=== PATIENT | female | born 1945 | race American Indian/Alaskan Native ===

== ENCOUNTER 2017-01-29 05:54 | Day surgery (SDC) | payer MEDICARE ==
[2017-01-29] MEDS ORDERED: NACL 0.9% 1000 ML 1,000 ML IV SCH (06:00)
[2017-01-29] MEDS ORDERED: ANCEF/STERILE WATER 2 GM/20 ML 2 GM/20 ML SYRINGE IV NR (06:00)
[2017-01-29 07:17] LABS: Basophils % (Auto) 1.2 % (0.0-1.8); Hematocrit 32.1 % (30.3-42.9); Hemoglobin 10.4 gm/dl (10.1-14.3); Mean Corpuscular HGB Conc 32 % (30-34); Mean Corpuscular Volume 80 fl (79-97); Platelet Count 235 K/mm3 (140-440); Red Blood Count 4.04 M/mm3 (3.65-5.03); Red Cell Distribution Width 15.2 % (13.2-15.2); White Blood Count 7.8 K/mm3 (4.5-11.0)
[2017-01-29 07:18] LABS: Mean Corpuscular Hemoglobin 26 pg (28-32)
--- NOTE | 2017-01-29 07:25 | Anesthesia Day of Surgery ---
Anesthesia Day of Surgery - Day of Surgery Patient Examined: Yes Patient H&P Reviewed: Yes Patient is NPO: Yes
--- NOTE | 2017-01-29 07:25 | Anesthesia Consultation ---
Anesthesia Consult and Med Hx Date of service: 01/29/17 - Airway Anesthetic Teeth Evaluation: Good ROM Head & Neck: Adequate Mental/Hyoid Distance: Adequate Mallampati Class: Class II Intubation Access Assessment: Probably Good - Pulmonary Exam CTA: Yes - Cardiac Exam Cardiac Exam: RRR - Pre-Operative Health Status ASA Pre-Surgery Classification: ASA4 Proposed Anesthetic Plan: General - Pulmonary Hx Smoking: No Hx Sleep Apnea: No - Cardiovascular System Hx Hypertension: Yes Hx Heart Attack/AMI: Yes (? 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
[2017-01-29] MEDS ORDERED: DIPRIVAN 10 MG/ML IV ONE (07:26)
[2017-01-29] MEDS ORDERED: XYLOCAINE MPF 2% ONE (07:27)
[2017-01-29] MEDS ORDERED: DILAUDID ONE ×2 (07:27→10:16)
[2017-01-29] MEDS ORDERED: NACL ONE (07:28)
[2017-01-29] MEDS ORDERED: MARCAINE 0.5% 30 ML INFILTRATI ONE (07:28)
[2017-01-29] MEDS ORDERED: HEPARIN 10,000 UNITS/10 ML ONE (07:29)
[2017-01-29] MEDS ORDERED: RIFADIN ONE (07:29)
[2017-01-29] MEDS ORDERED: NACL 0.9% 500 ML 500 ML ONE (07:29)
[2017-01-29 07:31] LABS: BUN/Creatinine Ratio 19.41; Calcium 8.9 mg/dL (8.4-10.2); Chloride 104.6 mmol/L (98-107); Potassium 4.7 mmol/L (3.6-5.0)
--- NOTE | 2017-01-29 08:22 | History and Physical Report ---
History of Present Illness Date of examination: 01/29/17 Date of admission: 01/29/2017 Chief complaint: Chronic Renal Insufficiency History of present illness: The patient is a 71-year-old female with history of stage V chronic renal insufficiency that is not yet progressed to hemodialysis however needs it in the very near future. She is in need of long-term access and requires placement of this prior to the initiation of hemodialysis. She had a vein size and in the past that demonstrated she does not have adequate veins for creation of a fistula so she is in need of an AV graft. She presents for graft placement. Past History Past Medical History: CAD, diabetes, hypertension, hyperlipidemia, renal failure , stroke Past Surgical History: hysterectomy, Other (Rotator cuff repair, hand surgery) Social history: no significant social history Family history: no significant family history Medications and Allergies Allergies Allergy/AdvReac Type Severity Reaction Status Date / Time No Known Allergies Allergy Unverified 01/26/17 10:33 Home Medications Medication Instructions Recorded Confirmed Last Taken Type Acetaminophen [Tylenol] 325 mg PO Q6HR PRN 01/26/17 01/26/17 Unknown History Aspirin [Adult Low Dose Aspirin EC] 81 mg PO DAILY 01/26/17 01/26/17 Unknown History Clopidogrel [Plavix] 75 mg PO QDAY 01/26/17 01/26/17 Unknown History Furosemide [Lasix] 20 mg PO QDAY 01/26/17 01/26/17 Unknown History Insulin Aspart [NovoLOG Flexpen] 0 units SQ AC 01/26/17 01/26/17 Unknown History Insulin Detemir [Levemir] 14 units SQ BID 01/26/17 01/26/17 Unknown History Lisinopril [Zestril] 20 mg PO QDAY 01/26/17 01/26/17 Unknown History Meclizine [Antivert] 25 mg PO PRN PRN 01/26/17 01/26/17 Unknown History Metoprolol [Lopressor TAB] 50 mg PO DAILY 01/26/17 01/26/17 Unknown History Niacin 500 mg PO QHS 01/26/17 01/26/17 Unknown History amLODIPine [Norvasc] 10 mg PO DAILY 01/26/17 01/26/17 Unknown History traMADol [Ultram] 50 mg PO Q4HR PRN 01/26/17 01/26/17 Unknown History Active Meds: Active Medications Cefazolin Sodium (Ancef/Sterile Water 2 Gm/20 Ml) 2 gm in 20 mls @ 80 mls/hr IV PREOP NR PRN Reason: Protocol Stop: 01/29/17 23:59 Sodium Chloride (Nacl 0.9% 1000 Ml) 1,000 mls @ 42 mls/hr IV DIRECT LARISA Last Admin: 01/29/17 07:40 Dose: 42 mls/hr Review of Systems Constitutional: fatigue, no weight loss, no anorexia Ears, nose, mouth and throat: deferred Breasts: deferred Cardiovascular: no chest pain, no orthopnea, no palpitations Respiratory: no cough, no cough with sputum, no shortness of breath Gastrointestinal: no abdominal pain, no nausea, no vomiting, no diarrhea, no change in bowel habits Genitourinary Female: no dysuria, no urinary frequency Menstruation: postmenopausal Rectal: no pain, no incontinence, no bleeding Musculoskeletal: no neck stiffness, no neck pain Integumentary: no rash Neurological: no head injury, no weakness Psychiatric: no anxiety, no depression Endocrine: no cold intolerance, no heat intolerance Hematologic/Lymphatic: no easy bruising, no easy bleeding Exam - Constitutional General appearance: Present: no acute distress - Neck Neck: Present: supple - Respiratory Respiratory effort: normal - Cardiovascular Rhythm: regular - Extremities Extremities: no ischemia, No edema, normal temperature - Abdominal General gastrointestinal: Present: soft, non-tender, non-distended Female genitourinary: Present: deferred - Rectal Rectal Exam: deferred - Integumentary Integumentary: Present: clear Results - Labs CBC & Chem 7: 01/29/17 06:55 01/29/17 06:55 Labs: Abnormal lab results 01/29/17 01/29/17 Range/Units 06:55 06:55 MCH 26 L (28-32) pg Lymph % (Auto) 35.4 H (13.4-35.0) % [place] % (Auto) 9.0 H (0.0-7.3) % Carbon Dioxide 21 L (22-30) mmol/L BUN 33 H (7-17) mg/dL Creatinine 1.7 H (0.7-1.2) mg/dL Glucose 180 H (65-100) mg/dL - Imaging and Cardiology Venous US: other (vein Mapping reviewed) Assessment and Plan The patient is 71-year-old female in need of long-term hemodialysis access. She does not have adequate vein for creation of a fistula. She will have creation of a left arm AV graft. She was given the risks, benefits, and alternative procedures and consented to the procedure.
[2017-01-29] MEDS ORDERED: ZOFRAN ONE ×2 (08:40→13:04)
[2017-01-29] MEDS ORDERED: HEPARIN 10,000 UNITS/10 ML IV ONE (09:05)
[2017-01-29] MEDS ORDERED: ePHEDrine SULFATE ONE (09:06)
[2017-01-29] MEDS ORDERED: NACL 0.9% IR ONE (09:06)
[2017-01-29] MEDS ORDERED: MARCAINE 0.5% IJ ONE (09:06)
[2017-01-29] MEDS ORDERED: RIFADIN IV ONE (09:06)
[2017-01-29] MEDS ORDERED: NACL IRRIGATION ONE (09:07)
[2017-01-29] MEDS ORDERED: NACL 0.9% 500 ML IRRIGATION ONE (09:08)
--- NOTE | 2017-01-29 09:41 | Short Stay Summary ---
Short Stay Documentation Date of service: 01/29/17 - History Past Medical History: CAD, diabetes, hypertension, hyperlipidemia, renal failure , stroke Past Surgical History: hysterectomy, Other (Rotator cuff repair, hand surgery) Social history: no significant social history - Allergies and Medications Current Medications: Allergies No Known Allergies Allergy (Unverified 01/26/17 10:33) Home Medications Medication Instructions Recorded Confirmed Last Taken Type Acetaminophen [Tylenol] 325 mg PO Q6HR PRN 01/26/17 01/26/17 Unknown History Aspirin [Adult Low Dose Aspirin EC] 81 mg PO DAILY 01/26/17 01/26/17 Unknown History Clopidogrel [Plavix] 75 mg PO QDAY 01/26/17 01/26/17 Unknown History Furosemide [Lasix] 20 mg PO QDAY 01/26/17 01/26/17 Unknown History Insulin Aspart [NovoLOG Flexpen] 0 units SQ AC 01/26/17 01/26/17 Unknown History Insulin Detemir [Levemir] 14 units SQ BID 01/26/17 01/26/17 Unknown History Lisinopril [Zestril] 20 mg PO QDAY 01/26/17 01/26/17 Unknown History Meclizine [Antivert] 25 mg PO PRN PRN 01/26/17 01/26/17 Unknown History Metoprolol [Lopressor TAB] 50 mg PO DAILY 01/26/17 01/26/17 Unknown History Niacin 500 mg PO QHS 01/26/17 01/26/17 Unknown History amLODIPine [Norvasc] 10 mg PO DAILY 01/26/17 01/26/17 Unknown History traMADol [Ultram] 50 mg PO Q4HR PRN 01/26/17 01/26/17 Unknown History Active Medications Cefazolin Sodium (Ancef/Sterile Water 2 Gm/20 Ml) 2 gm in 20 mls @ 80 mls/hr IV PREOP NR PRN Reason: Protocol Stop: 01/29/17 23:59 Sodium Chloride (Nacl 0.9% 1000 Ml) 1,000 mls @ 42 mls/hr IV DIRECT LARISA Last Admin: 01/29/17 07:40 Dose: 42 mls/hr - Physical exam Breasts: deferred Extremities: no ischemia, No edema, normal temperature - Brief post op/procedure progress note Date of procedure: 01/29/17 Pre-op diagnosis: Chronic Renal Insufficiency Post-op diagnosis: same Procedure: Creation of Left Part Artery to Left Axillary Vein AV Graft with 5 Mm Bovine Graft Anesthesia: TRUNG Surgeon: RYLAND PIPER Estimated blood loss: minimal Pathology: none Condition: stable - Disposition Condition at discharge: Good Disposition: DC-01 TO HOME OR SELFCARE Short Stay Discharge Plan Activity: other (No heavy lifting with left arm) Wound: open to air, keep clean and dry, other (okay to wash the wound with soap and water but do not soak in water) Follow up with: RYLAND PIPER MD [Staff Physician] - 14 Days Prescriptions: HYDROcodone/APAP 7.5-325 [[place] 7.5/325] 1 each PO Q6HR PRN #50 tablet PRN Reason: Pain
--- NOTE | 2017-01-29 09:43 | Operative Report ---
Operative Report Operative Report: Date of procedure: 01/29/2017 Pre-operative diagnosis: Chronic Renal Insufficiency Post-operative diagnosis: Same Procedure(s): 1. Creation of Left Brachial Artery to Axillary Vein AV Graft with 5 mm Bovine Graft Surgeon: Tc Cisneros MD Senior Medical Writer: None Anesthesia: General Endotracheal Anesthesia EBL: Minimal Counts: Correct Complications: None Condition: Stable Findings: Successful Creation of Left Arm AV Graft Specimen: None Indication: The patient is a 71-year-old female with history of chronic renal insufficiency was not yet on dialysis. She is in need of long-term access in anticipation of needing dialysis within the next few weeks. Her vein size and demonstrated she is not a candidate for an AV fistula so she was offered an AV graft. She was given the risk, benefits, and alternative procedures and consented to procedure. Description of Procedure: The patient was brought to the operating room and laid in supine position after general endotracheal anesthesia was achieved the left arm was prepped and draped in normal sterile fashion. A longitudinal incision was made on the medial aspect of the arm just proximal to the antecubital crease and carried down to the brachial artery using sharp dissection. The brachial artery was dissected out circumferentially both proximally and distally and controlled with vessel loops. A second incision was created in longitudinal fashion on the medial aspect of the arm just distal to the axillary crease and carried down to the axillary vein using sharp dissection. Axillary vein was dissected out circumferentially and controlled with a vessel loop. I then used a Shona- Wick tunneler to tunnel from the brachial artery incision to the axillary vein incision and then put an 5 mm bovine through the tunnel. I infused with heparinized saline to ensure that it was not twisted or kinked. I put the brachial artery vessel loops on tension controlling the flow and then created an arteriotomy using an 11 blade and Sharp scissors. I beveled the graft and created an end-to-side anastomosis using 6-0 Prolene running fashion. I clamped the graft just proximal to the anastomosis and then released the vessel loops restoring flow in the brachial artery. I placed quick clot in incision to achieve hemostasis. I cut the proximal end of the graft to the appropriate length and beveled the graft in preparation for a venous anastomosis. I controlled the axillary vein a Satinsky clamp and created a venotomy using an 11 blade and Sharp scissors. I created an end to side anastomosis using a 6-0 Prolene in running fashion. Prior to completing the anastomosis I flushed the graft to ensure there was no thrombus and then completed the anastamosis. I released all clamps allowing flow into the AV graft which had an excellent thrill. I packed the wound with quick clot to achieve hemostasis. I anesthetized both wounds with Marcaine and then closed both wounds in 2 layers using 3-0 Vicryl in running fashion in the deep dermal layer and 4-0 Monocryl in running fashion the subcuticular layer. I dressed both wounds with Surgicel. The patient tolerated the procedure well all sponge needle and instrument counts were correct the patient was taken to recovery in stable condition.
[2017-01-29] MEDS: DILAUDID IV PRN ×2 (10:15→10:30)
--- NOTE | 2017-01-29 11:01 | Post Anesthesia Evaluation ---
- Post Anesthesia Evaluation Patient Participated: Yes Airway Patent: Yes Stable Respiratory Function: Yes Nausea/Vomiting: No Temp > 96.8F: Yes Pain Manageable: Yes Adequeate Hydration: Yes Anesthesia Complications: No Block Receding Appropriately: Not Applicable Patient on Ventilator: No
[2017-01-29] MEDS ORDERED: ZOFRAN IV ONE (13:03)
[2017-01-29] MEDS ORDERED: NORCO 7.5/325 PO PRN (15:11)
[2017-01-29 15:48] VITALS: BP 145/86
== END 2017-01-29 15:55 | disposition home or self-care (01) ==
LOC: OR 05:54
PROVIDERS: ATTEND Surgery Vascular Surgery
DX: E11.22 Type 2 diabetes mellitus with diabetic chronic kidney disease (principal); I12.0 Hypertensive chronic kidney disease with stage 5 chronic kidney disease or end stage renal disease; N18.6 End stage renal disease; I25.10 Atherosclerotic heart disease of native coronary artery without angina pectoris; E78.00 Pure hypercholesterolemia, unspecified; Z86.73 Personal history of transient ischemic attack (TIA), and cerebral infarction without residual deficits; Z90.710 Acquired absence of both cervix and uterus; Z98.890 Other specified postprocedural states; Z79.82 Long term (current) use of aspirin; Z79.01 Long term (current) use of anticoagulants; Z79.899 Other long term (current) drug therapy; Z79.4 Long term (current) use of insulin; Z83.3 Family history of diabetes mellitus; Z82.49 Family history of ischemic heart disease and other diseases of the circulatory system
CPT/HCPCS: 36415; 36830; 80048; 82962; 85025; C1768; J0690; J1170; J1644; J2405; J2704; J3490; J7030; J7040; J1815

== ENCOUNTER 2020-08-04 19:03 | Emergency (ER) | payer MEDICARE ==
--- NOTE | 2020-08-04 19:44 | Emergency Department Report ---
ED Fall HPI - General Stated Complaint: WEAKNESS/FALL Time Seen by Provider: 08/04/20 19:28 - History of Present Illness Initial Comments: Patient is 75 years old female with history of end-stage renal disease on hemodialysis, hypertension, diabetes and congestive heart failure. Patient presented to the ER via EMS for evaluation after a fall that happened this afternoon at home. Patient stated that she was trying to go up a stair and slipped and fell landed on the right side. Patient denied any head injury or neck injury at this time however patient had a fall few days ago and stated that she is having headache and neck pain. Patient denied any loss of consciousness. Patient is complaining of right hip pain. Patient stated that she noticed her fall usually after she had her dialysis. Patient denied any fever or chills. No chest pain or shortness of breath. Patient denied any focal weakness numbness or tingling sensation. No bowel or bladder incontinence. MD Complaint: fall -: This afternoon Fall From: standing When Fall Occurred: 4-[address] Fall Occurred: home Loss of Consciousness: none Prolonged Down Time?: no Symptoms Prior to Fall: none Location: head, neck, pelvis Severity: moderate Severity scale (0 -10): 4 Context: tripped/slipped - Related Data Home Medications Medication Instructions Recorded Confirmed Last Taken Diclofenac Sodium [Voltaren] 1 applic TP DAILY 03/15/18 03/15/18 Unknown Ergocalciferol (Vitamin D2) 50,000 unit PO QWEEK 03/15/18 03/15/18 Unknown [Drisdol] Furosemide [Lasix TAB] 40 mg PO BID 03/15/18 03/15/18 Unknown Insulin Aspart (Nf) [NovoLOG 100 8 units SUB-Q QAM 03/15/18 03/15/18 Unknown UNITS/ML VIAL] Insulin Aspart (Nf) [NovoLOG 100 10 units SUB-Q DAILY@1200 03/15/18 03/15/18 Unknown UNITS/ML VIAL] Insulin Aspart (Nf) [NovoLOG 100 10 units SUB-Q QPM 03/15/18 03/15/18 Unknown UNITS/ML VIAL] Insulin Degludec (Nf) [Tresiba 20 units SUB-Q HS 03/15/18 03/15/18 Unknown Flextouch U-100 (Nf)] Lisinopril [Zestril] 40 mg PO QDAY 03/15/18 03/15/18 Unknown Niacin [Plain Niacin] 500 mg PO HS 03/15/18 03/15/18 Unknown Rosuvastatin Calcium [Crestor] 40 mg PO DAILY 03/15/18 03/15/18 Unknown Previous Rx's Medication Instructions Recorded Last Taken Type Aspirin [Adult Low Dose Aspirin EC] 81 mg PO DAILY #30 tablet. 04/10/17 Unknown Rx Clopidogrel [Plavix] 75 mg PO QDAY #30 tablet 04/10/17 Unknown Rx Metoprolol [Lopressor TAB] 50 mg PO DAILY #30 tablet 04/10/17 Unknown Rx amLODIPine 10 mg PO DAILY #30 tablet 04/10/17 Unknown Rx oxyCODONE /ACETAMINOPHEN [Percocet 1 tab PO Q6H PRN #10 tablet 03/20/18 Unknown Rx 5/325 mg] Allergies Allergy/AdvReac Type Severity Reaction Status Date / Time No Known Allergies Allergy Unverified 01/26/17 10:33 ED Review of Systems ROS: Stated complaint: WEAKNESS/FALL Other details as noted in HPI Comment: All other systems reviewed and negative Constitutional: denies: chills, fever Respiratory: denies: orthopnea, shortness of breath, SOB with exertion Cardiovascular: denies: chest pain, palpitations Gastrointestinal: denies: abdominal pain, nausea, vomiting, diarrhea, constipation, hematemesis, melena, hematochezia Genitourinary: denies: urgency Musculoskeletal: denies: back pain Neurological: denies: headache, weakness, numbness, paresthesias, confusion ED Past Medical Hx - Past Medical History Hx Hypertension: Yes Hx Heart Attack/AMI: Yes Hx Congestive Heart Failure: Yes Hx Diabetes: Yes Hx Renal Disease: Yes (grade 5) Hx Arthritis: Yes Hx HIV: No - Surgical History Additional Surgical History: B/L Knee replacement X2. dialysis access left upper arm. hysterectomy - Social History Smoking Status: Never Smoker - Medications Home Medications: Home Medications Medication Instructions Recorded Confirmed Last Taken Type Aspirin [Adult Low Dose Aspirin EC] 81 mg PO DAILY #30 tablet. 04/10/17 03/15/18 Unknown Rx Clopidogrel [Plavix] 75 mg PO QDAY #30 tablet 04/10/17 03/15/18 Unknown Rx Metoprolol [Lopressor TAB] 50 mg PO DAILY #30 tablet 04/10/17 03/15/18 Unknown Rx amLODIPine 10 mg PO DAILY #30 tablet 04/10/17 03/15/18 Unknown Rx Diclofenac Sodium [Voltaren] 1 applic TP DAILY 03/15/18 03/15/18 Unknown History Ergocalciferol (Vitamin D2) 50,000 unit PO QWEEK 03/15/18 03/15/18 Unknown History [Drisdol] Furosemide [Lasix TAB] 40 mg PO BID 03/15/18 03/15/18 Unknown History Insulin Aspart (Nf) [NovoLOG 100 8 units SUB-Q QAM 03/15/18 03/15/18 Unknown History UNITS/ML VIAL] Insulin Aspart (Nf) [NovoLOG 100 10 units SUB-Q DAILY@1200 03/15/18 03/15/18 Unknown History UNITS/ML VIAL] Insulin Aspart (Nf) [NovoLOG 100 10 units SUB-Q QPM 03/15/18 03/15/18 Unknown History UNITS/ML VIAL] Insulin Degludec (Nf) [Tresiba 20 units SUB-Q HS 03/15/18 03/15/18 Unknown History Flextouch U-100 (Nf)] Lisinopril [Zestril] 40 mg PO QDAY 03/15/18 03/15/18 Unknown History Niacin [Plain Niacin] 500 mg PO HS 03/15/18 03/15/18 Unknown History Rosuvastatin Calcium [Crestor] 40 mg PO DAILY 03/15/18 03/15/18 Unknown History oxyCODONE /ACETAMINOPHEN [Percocet 1 tab PO Q6H PRN #10 tablet 03/20/18 Unknown Rx 5/325 mg] ED Physical Exam - General General appearance: alert, in no apparent distress - Head Head exam: Present: atraumatic, normocephalic, normal inspection - Eye Eye exam: Present: normal appearance, PERRL - ENT ENT exam: Present: normal exam, normal orophraynx, mucous membranes moist - Neck Neck exam: Present: normal inspection, full ROM. Absent: tenderness, meningismus - Respiratory Respiratory exam: Present: normal lung sounds bilaterally - Cardiovascular Cardiovascular Exam: Present: regular rate, normal rhythm, normal heart sounds - GI/Abdominal GI/Abdominal exam: Present: soft, normal bowel sounds. Absent: distended, tenderness, guarding, rebound, rigid, organomegaly, mass, bruit, pulsatile mass, hernia - Extremities Exam Extremities exam: Present: normal inspection, normal capillary refill. Absent: calf tenderness - Expanded Lower Extremity Exam Right Hip exam: Present: normal inspection, tenderness Upper Leg exam: Present: normal inspection, full ROM Knee exam: Present: normal inspection, full ROM. Absent: tenderness Lower Leg exam: Present: normal inspection, full ROM. Absent: tenderness, swelling Ankle exam: Present: normal inspection, full ROM Foot/Toe exam: Present: normal inspection Neuro vascular tendon exam: Present: no vascular compromise - Back Exam Back exam: Present: normal inspection, full ROM. Absent: CVA tenderness (R), CVA tenderness (L) - Neurological Exam Neurological exam: Present: alert, oriented X3, CN II-XII intact - Psychiatric Psychiatric exam: Present: normal mood - Skin Skin exam: Present: warm, intact, normal color ED Course Vital Signs 08/04/20 08/04/20 08/04/20 19:30 19:45 20:30 Temperature 98.8 F Pulse Rate 81 83 78 Respiratory 20 19 17 Rate Blood Pressure 124/47 124/47 159/77 Blood Pressure 124/47 [Right] O2 Sat by Pulse 97 98 99 Oximetry ED Medical Decision Making - Lab Data Result diagrams: 08/04/20 20:22 08/04/20 20:22 - EKG Data -: EKG Interpreted by Wa EKG shows normal: sinus rhythm Rate: normal - EKG Data Interpretation: no acute changes - Radiology Data Radiology results: report reviewed - Medical Decision Making Patient is 75 years old female with history of end-stage renal disease on hemodialysis, hypertension, diabetes and congestive heart failure. Patient presented to the ER via EMS for evaluation after a fall that happened this afternoon at home. Patient stated that she was trying to go up a stair and slipped and fell landed on the right side. Patient denied any head injury or neck injury at this time however patient had a fall few days ago and stated that she is having headache and neck pain. Patient denied any loss of consciousness. Patient is complaining of right hip pain. Patient stated that she noticed her fall usually after she had her dialysis. Patient denied any fever or chills. No chest pain or shortness of breath. Patient denied any focal weakness numbness or tingling sensation. No bowel or bladder incontinence. Patient remained stable in the ER with a stable vital sign. Labs reviewed and is unremarkable except for chronic elevation of kidney function. CT brain, CT cervical spine, CT pelvis is unremarkable for acute finding. Patient given a printout for fall precaution and advised to follow-up with her primary care physician in the next 2 to 3 days and to return to the ER if she develop any new symptoms. Critical care attestation.: If time is entered above; I have spent that time in minutes in the direct care of this critically ill patient, excluding procedure time. ED Disposition Clinical Impression: Fall, Neck contusion, End stage renal disease on dialysis Disposition: DC- TO HOME OR SELFCARE Is pt being admited?: No Condition: Stable Instructions: Contusion, [id number], Fall Prevention in the Home, Adult, [id number] Referrals: MAMI HEWITT MD [Primary Care Provider] - 3-5 Days
--- NOTE | 2020-08-04 20:36 | XRay Report ---
RIGHT HIP 3 VIEWS INDICATION / CLINICAL INFORMATION: Fall. COMPARISON: None available. FINDINGS: No significant skeletal abnormality Signer Name: Waqas Mckeon MD FACR Signed: 08/04/2020 8:31 PM Workstation Name: [id number]
[2020-08-04 20:47] LABS: Hematocrit 31.3 % (30.3-42.9); Hemoglobin 10.3 gm/dl (10.1-14.3); Mean Corpuscular HGB Conc 33 % (30-34); Mean Corpuscular Volume 89 fl (79-97); Platelet Count 126 K/mm3 (140-440); Red Blood Count 3.53 M/mm3 (3.65-5.03); Red Cell Distribution Width 18.3 % (13.2-15.2)
[2020-08-04 21:05] LABS: Calcium 8.9 mg/dL (8.4-10.2)
[2020-08-04 21:21] LABS: Total Cells Counted 100
[2020-08-04 21:22] LABS: Anisocytosis 1+
[2020-08-04 21:23] LABS: Ovalocytes 1+; Platelet Estimate Consistent w Auto; Poikilocytosis 1+; Tear Drop Cells Few
--- NOTE | 2020-08-04 21:44 | Cat Scan Report ---
CT PELVIS WITHOUT CONTRAST INDICATION / CLINICAL INFORMATION: right hip pain. TECHNIQUE: Axial CT images were obtained through the pelvis without contrast. All CT scans at this location are performed using CT dose reduction for ALARA by means of automated exposure control. COMPARISON: Prior hip radiographs dated 08/04/2020. FINDINGS: BONES: No fracture. No osseous lesion. Moderate/advanced degenerative changes are noted of the pubic symphysis. HIP JOINTS: Moderate bilateral hip arthrosis. No dislocation. SACROILIAC JOINTS: Moderate bilateral SI joint degenerative changes with sclerotic changes and vacuum phenomenon. SOFT TISSUES: Significant soft tissue swelling and edema noted over the lateral aspect of the right h ip. LOWER LUMBAR SPINE: Advanced lumbar spondylosis partially visualized. SOFT TISSUES WITHIN PELVIS: Colonic diverticulosis without diverticulitis. ADDITIONAL FINDINGS: Fat-containing midline ventral abdominal wall hernia. IMPRESSION: 1. No acute fracture or dislocation. 2. Moderate superficial soft tissue contusion overlying the right hip. 3. Moderate arthrosis involving bilateral hips, bilateral SI joints, pubic sepsis, and lower lumbar s pine. Signer Name: Deacon Castorena MD Signed: 08/04/2020 9:40 PM Workstation Name: [id number]
--- NOTE | 2020-08-04 21:50 | Cat Scan Report ---
CT BRAIN: 08/04/2020 INDICATION / CLINICAL INFORMATION: Fall. COMPARISON: None available. FINDINGS: BRAIN/INTRACRANIAL STRUCTURES: Unenhanced CT images of the brain were obtained and compared to the pr ior exam from 04/08/2017. Overall, there is been no significant change. There is no evidence of acute intracranial abnormality. Ventricles and sulci are prominent in size, c onsistent with diffuse cerebral atrophy. Chronic white matter hypoattenuation is present. There is no evidence of hemorrhage or mass. There are no abnormal extra-axial fluid collections. Paranasal sinus disease seen on the prior exam is no longer present. EXTRACRANIAL STRUCTURES: Unremarkable. IMPRESSION: No acute abnormality. Chronic and age-related changes. All CT scans at this location are performed using dose reduction to ALARA by means of automated expos ure control. Signer Name: Larry Watt MD Signed: 08/04/2020 9:45 PM Workstation Name: [id number]
--- NOTE | 2020-08-04 21:52 | Cat Scan Report ---
CT CERVICAL SPINE: 08/04/2020 INDICATION / CLINICAL INFORMATION: Fall. COMPARISON: 04/08/2017 FINDINGS: CT images of the cervical spine were obtained. Images are evaluated in the axial, coronal, and sagitt al planes. Is no evidence of acute abnormality. Prominent degenerative disc and facet changes are present throughout the cervical spine. There is braxton r complete loss of all cervical disc space on a degenerative basis. There is no evidence of central canal narrowing. Bilateral foraminal narrowing is present at all leve ls. LEVEL BY LEVEL ANALYSIS: . CRANIOCERVICAL JUNCTION: Unremarkable. PARASPINAL STRUCTURES: Unremarkable There is a prominent nodule extending off the inferior margin of the thyroid gland and extending bri nward, which measures at least 4.2 cm in length. This is unchanged when compared to the prior exam IMPRESSION: No acute abnormality. Degenerative changes as described above, stable when compared to 04/08/2017. All CT scans at this location are performed using dose reduction to ALARA by means of automated expos ure control. Signer Name: Larry Watt MD Signed: 08/04/2020 9:48 PM Workstation Name: [id number]
[2020-08-04 22:27] VITALS: BP 141/54
== END 2020-08-04 22:45 | disposition home or self-care (01) ==
LOC: ED 19:03
DX: S10.93XA Contusion of unspecified part of neck, initial encounter (principal); E11.22 Type 2 diabetes mellitus with diabetic chronic kidney disease; I13.2 Hypertensive heart and chronic kidney disease with heart failure and with stage 5 chronic kidney disease, or end stage renal disease; I50.9 Heart failure, unspecified; N18.6 End stage renal disease; M25.551 Pain in right hip; M19.91 Primary osteoarthritis, unspecified site; Z99.2 Dependence on renal dialysis; Z90.710 Acquired absence of both cervix and uterus; Z98.890 Other specified postprocedural states; Z79.4 Long term (current) use of insulin; Z79.899 Other long term (current) drug therapy; W01.0XXA Fall on same level from slipping, tripping and stumbling without subsequent striking against object, initial encounter; Y93.89 Activity, other specified; Y92.009 Unspecified place in unspecified non-institutional (private) residence as the place of occurrence of the external cause; Y99.8 Other external cause status
CPT/HCPCS: 36415; 70450; 72125; 72192; 80048; 85007; 85025

== ENCOUNTER 2021-09-26 14:54 | Emergency (ER) | payer MEDICARE ==
[2021-09-26] MEDS ORDERED: SODIUM CHLORIDE 0.9% 500 ML 500 ML IV ONE (15:02)
--- NOTE | 2021-09-26 16:04 | XRay Report ---
CHEST 1 VIEW 09/26/2021 2:56 PM INDICATION / CLINICAL INFORMATION: Weakness. COMPARISON: 03/20/2018 FINDINGS: SUPPORT DEVICES: None. HEART / MEDIASTINUM: No significant abnormality. LUNGS / PLEURA: No significant pulmonary or pleural abnormality. No pneumothorax. ADDITIONAL FINDINGS: No significant additional findings. IMPRESSION: 1. No acute findings. Signer Name: Zak Sifuentes DO Signed: 09/26/2021 3:59 PM Workstation Name: [id number]
[2021-09-26 16:27] LABS: INR 0.99 (0.87-1.13)
[2021-09-26 16:28] LABS: Basophils % (Auto) 0.6 % (0.0-1.8); Eosinophils # (Auto) 0.1 K/mm3 (0.0-0.4); Eosinophils % (Auto) 1.2 % (0.0-4.3); Hematocrit 35.6 % (30.3-42.9); Hemoglobin 11.3 gm/dl (10.1-14.3); Lymphocytes # (Auto) 1.1 K/mm3 (1.2-5.4); Lymphocytes % (Auto) 21.3 % (13.4-35.0); Mean Corpuscular HGB Conc 32 % (30-34); Mean Corpuscular Volume 89 fl (79-97); Monocytes # (Auto) 0.6 K/mm3 (0.0-0.8); Monocytes % (Auto) 10.9 % (0.0-7.3); Platelet Count 116 K/mm3 (140-440); Red Blood Count 3.99 M/mm3 (3.65-5.03); Red Cell Distribution Width 16.2 % (13.2-15.2)
[2021-09-26 16:29] LABS: Albumin 4.2 g/dL (3.9-5); Calcium 8.8 mg/dL (8.4-10.2)
--- NOTE | 2021-09-26 17:14 | Emergency Department Report ---
- General Chief complaint: Weakness Stated complaint: DIZZINESS Time Seen by Provider: 09/26/21 15:02 Source: patient Mode of arrival: Ambulatory Limitations: No Limitations - History of Present Illness Initial comments: pt was in dialysis today when she felt weak and was brought in her by ambulance for eval , BP was low initially but better now , no chets pain no sob no fever no cough MD Complaint: generalized weakness -: Gradual, hour(s) Associated Symptoms: denies: denies other symptoms, dark stools, easy bruising, fever/chills, headaches, loss of appetite - Related Data Home Medications Medication Instructions Recorded Confirmed Last Taken Diclofenac Sodium [Voltaren] 1 applic TP DAILY 03/15/18 03/15/18 Unknown Ergocalciferol (Vitamin D2) 50,000 unit PO QWEEK 03/15/18 03/15/18 Unknown [Drisdol] Furosemide [Lasix TAB] 40 mg PO BID 03/15/18 03/15/18 Unknown Insulin Aspart (Nf) [NovoLOG 100 8 units SUB-Q QAM 03/15/18 03/15/18 Unknown UNITS/ML VIAL] Insulin Aspart (Nf) [NovoLOG 100 10 units SUB-Q DAILY@1200 03/15/18 03/15/18 Unknown UNITS/ML VIAL] Insulin Aspart (Nf) [NovoLOG 100 10 units SUB-Q QPM 03/15/18 03/15/18 Unknown UNITS/ML VIAL] Insulin Degludec (Nf) [Tresiba 20 units SUB-Q HS 03/15/18 03/15/18 Unknown Flextouch U-100 (Nf)] Lisinopril [Zestril] 40 mg PO QDAY 03/15/18 03/15/18 Unknown Niacin [Plain Niacin] 500 mg PO HS 03/15/18 03/15/18 Unknown Rosuvastatin Calcium [Crestor] 40 mg PO DAILY 03/15/18 03/15/18 Unknown Previous Rx's Medication Instructions Recorded Last Taken Type Aspirin [Adult Low Dose Aspirin EC] 81 mg PO DAILY #30 tablet. 04/10/17 Un known Rx Clopidogrel [Plavix] 75 mg PO QDAY #30 tablet 04/10/17 Unknown Rx Metoprolol [Lopressor TAB] 50 mg PO DAILY #30 tablet 04/10/17 Unknown Rx amLODIPine 10 mg PO DAILY #30 tablet 04/10/17 Unknown Rx oxyCODONE /ACETAMINOPHEN [Percocet 1 tab PO Q6H PRN #10 tablet 03/20/18 Unknown Rx 5/325 mg] Allergies Allergy/AdvReac Type Severity Reaction Status Date / Time No Known Allergies Allergy Unverified 01/26/17 10:33 ED Review of Systems ROS: Stated complaint: DIZZINESS Other details as noted in HPI Constitutional: denies: chills, fever Eyes: denies: eye pain, eye discharge, vision change ENT: denies: ear pain, throat pain Respiratory: denies: cough, shortness of breath, wheezing Cardiovascular: denies: chest pain, palpitations Endocrine: no symptoms reported Gastrointestinal: denies: abdominal pain, nausea, diarrhea Genitourinary: denies: urgency, dysuria, discharge Musculoskeletal: denies: back pain, joint swelling, arthralgia Skin: denies: rash, lesions Neurological: denies: headache, weakness, paresthesias Psychiatric: denies: anxiety, depression Hematological/Lymphatic: denies: easy bleeding, easy bruising ED Past Medical Hx - Past Medical History Previous Medical History?: Yes Hx Hypertension: Yes Hx Heart Attack/AMI: Yes Hx Congestive Heart Failure: Yes Hx Diabetes: Yes Hx Renal Disease: Yes (grade 5) Hx Arthritis: Yes Hx HIV: No - Surgical History Past Surgical History?: Yes Additional Surgical History: B/L Knee replacement X2. dialysis access left upper arm. hysterectomy - Social History Smoking Status: Never Smoker Substance Use Type: None - Medications Home Medications: Home Medications Medication Instructions Recorded Confirmed Last Taken Type Aspirin [Adult Low Dose Aspirin EC] 81 mg PO DAILY #30 tablet. 04/10/1703/02 Unknown Rx Clopidogrel [Plavix] 75 mg PO QDAY #30 tablet 04/10/17 03/15/18 Unknown Rx Metoprolol [Lopressor TAB] 50 mg PO DAILY #30 tablet 04/10/17 03/15/18 Unknown Rx amLODIPine 10 mg PO DAILY #30 tablet 04/10/17 03/15/18 Unknown Rx Diclofenac Sodium [Voltaren] 1 applic TP DAILY 03/15/18 03/15/18 Unknown History Ergocalciferol (Vitamin D2) 50,000 unit PO QWEEK 03/15/18 03/15/18 Unknown History [Drisdol] Furosemide [Lasix TAB] 40 mg PO BID 03/15/18 03/15/18 Unknown History Insulin Aspart (Nf) [NovoLOG 100 8 units SUB-Q QAM 03/15/18 03/15/18 Unknown History UNITS/ML VIAL] Insulin Aspart (Nf) [NovoLOG 100 10 units SUB-Q DAILY@1200 03/15/18 03/15/18 Unknown History UNITS/ML VIAL] Insulin Aspart (Nf) [NovoLOG 100 10 units SUB-Q QPM 03/15/18 03/15/18 Unknown History UNITS/ML VIAL] Insulin Degludec (Nf) [Tresiba 20 units SUB-Q HS 03/15/18 03/15/18 Unknown History Flextouch U-100 (Nf)] Lisinopril [Zestril] 40 mg PO QDAY 03/15/18 03/15/18 Unknown History Niacin [Plain Niacin] 500 mg PO HS 03/15/18 03/15/18 Unknown History Rosuvastatin Calcium [Crestor] 40 mg PO DAILY 03/15/18 03/15/18 Unknown History oxyCODONE /ACETAMINOPHEN [Percocet 1 tab PO Q6H PRN #10 tablet 03/20/18 Unknown Rx 5/325 mg] ED Physical Exam - General Limitations: No Limitations General appearance: alert, in no apparent distress - Head Head exam: Present: atraumatic, normocephalic - Eye Eye exam: Present: normal appearance - ENT ENT exam: Present: mucous membranes moist - Neck Neck exam: Present: normal inspection - Respiratory Respiratory exam: Present: normal lung sounds bilaterally. Absent: respiratory distress - Cardiovascular Cardiovascular Exam: Present: regular rate, normal rhythm. Absent: systolic murmur, diastolic murmur, rubs, gallop - GI/Abdominal GI/Abdominal exam: Present: soft, normal bowel sounds - Extremities Exam Extremities exam: Present: normal inspection - Back Exam Back exam: Present: normal inspection - Neurological Exam Neurological exam: Present: alert, oriented X3 - Psychiatric Psychiatric exam: Present: normal affect, normal mood - Skin Skin exam: Present: warm, dry, intact, normal color. Absent: rash ED Course Vital Signs 09/26/21 15:12 Temperature 98 F Pulse Rate 84 Respiratory 16 Rate Blood Pressure 120/74 O2 Sat by Pulse 98 Oximetry ED Medical Decision Making - Lab Data Result diagrams: 09/26/21 15:56 09/26/21 15:56 - EKG Data -: EKG Interpreted by Me EKG shows normal: sinus rhythm - EKG Data When compared to previous EKG there are: no significant change Interpretation: LVH - Radiology Data Radiology results: report reviewed, image reviewed - Medical Decision Making work up showed : CKD : stable elevated tropnin : no chets pain , EKG not changed fluids given feels better Critical care attestation.: If time is entered above; I have spent that time in minutes in the direct care of this critically ill patient, excluding procedure time. ED Disposition Clinical Impression: Weakness, Anemia in chronic kidney disease (CKD), CKD (chronic kidney disease) Disposition: HOME / SELF CARE / HOMELESS Is pt being admited?: No Does the pt Need Aspirin: No Condition: Stable Instructions: Food Basics for Chronic Kidney Disease, Weakness, [id number], Chronic Kidney Disease, Adult Referrals: ARTI ANTONY MD [Primary Care Provider] - 3-5 Days
[2021-09-26 17:33] VITALS: BP 129/77
--- NOTE | 2021-09-28 14:17 | Electrocardiograph Report ---
[facility] Test Date: 2021-09-26 Test Time: 15:30:25 Pat Name: DEJA GEORGE Department: Room: Gender: F Bartender Manager: MOE : [id number] Requested By: TERESE MA Order Number: [id number] Reading MD: Linh Spencer Measurements Intervals [place] Rate: 71 P: 53 WV: 248 QRS: -39 QRSD: 91 T: 71 QT: 441 QTc: 480 Interpretive Statements Sinus rhythm Left axis deviation Poor R wave progression, consider old anterior infarct No previous ECG available for comparison Electronically Signed On 09-28-2021 14:17:20 EDT by Linh Spencer
== END 2021-09-26 17:49 | disposition home or self-care (01) ==
LOC: ED 14:54
DX: I12.9 Hypertensive chronic kidney disease with stage 1 through stage 4 chronic kidney disease, or unspecified chronic kidney disease (principal); E11.22 Type 2 diabetes mellitus with diabetic chronic kidney disease; N18.9 Chronic kidney disease, unspecified; D63.1 Anemia in chronic kidney disease; R53.1 Weakness
CPT/HCPCS: 36415; 71045; 80053; 82550; 83735; 84484; 85025; 85610; 93005; 96360; 99284; J7040

== ENCOUNTER 2022-01-31 01:00 | Emergency (ER) | payer MEDICARE ==
--- NOTE | 2022-01-31 02:07 | Cat Scan Report ---
CT HEAD WITHOUT CONTRAST INDICATION / CLINICAL INFORMATION: Head injury after fall. TECHNIQUE: All CT scans at this location are performed using CT dose reduction for ALARA by means of automated exposure control. COMPARISON: CT head without contrast from 08/04/2020. FINDINGS: BRAIN PARENCHYMA: No acute intracranial hemorrhage. No evidence of recent infarct. No mass effect or midline shift. Probable chronic microvascular ischemic changes are again seen along with generalized atrophy. VENTRICULAR SYSTEM/EXTRA-AXIAL SPACES: Ventricles are normal for age. No extra-axial fluid collection . ORBITS: Normal as visualized. SKELETAL SYSTEM/SOFT TISSUES: Normal bones and soft tissues. PARANASAL SINUSES/MASTOID AIR CELLS: No significant abnormality. ADDITIONAL FINDINGS: None. IMPRESSION: 1. No acute intracranial abnormality. No significant interval changes. Signer Name: Yoandy Faulkner MD Signed: 01/31/2022 2:03 AM Workstation Name: [id number]
--- NOTE | 2022-01-31 02:11 | XRay Report ---
SACRUM/COCCYX 5 VIEWS INDICATION / CLINICAL INFORMATION: Pain along sacrum/coccyx after fall. COMPARISON: None available. FINDINGS: This study is limited by bowel overlying the sacrum and coccyx. BONES and JOINT(S): No acute fracture or subluxation. Mild degenerative changes are seen along the SI joints. SOFT TISSUES: No significant abnormality. ADDITIONAL FINDINGS: None. IMPRESSION: 1. No acute findings. Signer Name: Yoandy Faulkner MD Signed: 01/31/2022 2:07 AM Workstation Name: [id number]
[2022-01-31] MEDS ORDERED: ACETAMINOPHEN 325 MG TAB PO ONE (06:26)
--- NOTE | 2022-01-31 06:28 | Emergency Department Report ---
ED General Adult HPI - General Chief complaint: Fall Stated complaint: SEVERAL FALLS Time Seen by Provider: 01/31/22 06:14 Source: patient, RN notes reviewed Mode of arrival: Wheelchair Limitations: No Limitations - History of Present Illness Initial comments: The patient was evaluated in the emergency department for symptoms described in the history of present illness. He/she was evaluated in the context of the global COVID-19 pandemic, which necessitated consideration that the patient might be at risk for infection with the virus that causes COVID-19. Institutional protocols and algorithms that pertain to the evaluation of patients at risk for COVID-19 are in a state of rapid change based on information released by regulatory bodies including the CDC and federal and state organizations. These policies and algorithms were followed during the patient's care in the emergency department. Please note that these policies, procedures and recommendations changed on a rapid basis. Nephrology: Dr. Malhotra This is a pleasant and cooperative 76-year-old female who is accompanied by her family member. They presents to the department for evaluation after mechanical fall. Patient lives at home with family, and walks with a walker. She was be nding over, and fell on her buttocks, and then hit her head. Patient denies chest pain, new/different shortness of breath, vomiting, diarrhea. She denies headache and neck pain. She has buttock pain and tailbone pain. Patient and family describe that the patient has had increasing frequency of f alls over the past few weeks. The patient is not interested in going to a alf. The patient is at her baseline at this time. The patient was due for hemodialysis yesterday, but did not go. Location: buttocks Severity scale (0 -10): 0 Quality: aching Consistency: intermittent Improves with: rest Worsens with: movement - Related Data Home Medications Medication Instructions Recorded Confirmed Last Taken Diclofenac Sodium [Voltaren] 1 applic TP DAILY 03/15/18 11/08/21 Unknown Ergocalciferol (Vitamin D2) 50,000 unit PO QWEEK 03/15/18 11/08/21 Unknown [Drisdol] Acetaminophen [Acetaminophen TAB] 325 mg PO QDAY PRN 11/08/21 11/08/21 Unknown Ascorbic Acid/Elderberry Fruit 1 each PO QDAY 11/08/21 11/08/21 Unknown [Elderberry-Vit C 50-100 mg Chw] Dextran 70/Hypromellose [Natural 1 drop OU QDAY 11/08/21 11/08/21 Unknown Balance Tears Eye Drop] Previous Rx's Medication Instructions Recorded Last Taken Type Aspirin EC [Halfprin EC] 81 mg PO DAILY #30 tablet 11/09/21 Unknown Rx AtorvaSTATin [Lipitor] 40 mg PO QHS #30 tablet 11/09/21 Unknown Rx Clopidogrel [Plavix] 75 mg PO QDAY #30 tablet 11/09/21 Unknown Rx Ergocalciferol [Vitamin D2] 50,000 unit PO Mo capsule 11/09/21 Unknown Rx Ferric Citrate (Nf) [Auryxia] 210 mg PO QDAY #30 tab-cap 11/09/21 Unknown Rx Furosemide [Lasix TAB] 40 mg PO BID #60 tab 11/09/21 Unknown Rx Gabapentin [Neurontin] 600 mg PO BID #60 tab 11/09/21 Unknown Rx Metoprolol [Lopressor TAB] 50 mg PO DAILY #30 tablet 11/09/21 Unknown Rx amLODIPine 10 mg PO DAILY #30 tablet 11/09/21 Unknown Rx lisinopriL [Zestril TAB] 40 mg PO QDAY #30 tablet 11/09/21 Unknown Rx oxyCODONE /ACETAMINOPHEN [Percocet 1 tab PO Q6H PRN tablet 11/09/21 Unknown Rx 5/325 mg] oxyCODONE /ACETAMINOPHEN [Percocet 1 tab PO Q6H PRN #10 tablet 11/09/21 Unknown Rx 5/325 mg] Acetaminophen [Non-Aspirin Extra 500 mg PO Q6HR PRN #30 tablet 01/31/22 Unknown Rx Strength] Metoclopramide [Reglan] 10 mg PO QID PRN #30 tablet 01/31/22 Unknown Rx Allergies Allergy/AdvReac Type Severity Reaction Status Date / Time No Known Allergies Allergy Verified 11/08/21 15:11 ED Review of Systems ROS: Stated complaint: SEVERAL FALLS Other details as noted in HPI Constitutional: denies: fever Eyes: denies: eye discharge ENT: denies: epistaxis Respiratory: denies: cough Cardiovascular: denies: chest pain Gastrointestinal: denies: abdominal pain Genitourinary: denies: dysuria Musculoskeletal: back pain, arthralgia, myalgia Neurological: headache. denies: weakness ED Past Medical Hx - Past Medical History Hx Hypertension: Yes Hx Heart Attack/AMI: Yes Hx Congestive Heart Failure: Yes Hx Diabetes: Yes Hx Renal Disease: Yes (grade 5) Hx Arthritis: Yes Hx HIV: No - Surgical History Additional Surgical History: B/L Knee replacement X2. dialysis access left upper arm. hysterectomy - Social History Smoking Status: Unknown if ever smoked - Medications Home Medications: Home Medications Medication Instructions Recorded Confirmed Last Taken Type Diclofenac Sodium [Voltaren] 1 applic TP DAILY 03/15/18 11/08/21 Unknown History Ergocalciferol (Vitamin D2) 50,000 unit PO QWEEK 03/15/18 11/08/21 Unknown History [Drisdol] Acetaminophen [Acetaminophen TAB] 325 mg PO QDAY PRN 11/08/21 11/08/21 Unknown History Ascorbic Acid/Elderberry Fruit 1 each PO QDAY 11/08/21 11/08/21 Unknown History [Elderberry-Vit C 50-100 mg Chw] Dextran 70/Hypromellose [Natural 1 drop OU QDAY 11/08/21 11/08/21 Unknown History Balance Tears Eye Drop] Aspirin EC [Halfprin EC] 81 mg PO DAILY #30 tablet 11/09/21 Unknown Rx AtorvaSTATin [Lipitor] 40 mg PO QHS #30 tablet 11/09/21 Unknown Rx Clopidogrel [Plavix] 75 mg PO QDAY #30 tablet 11/09/21 Unknown Rx Ergocalciferol [Vitamin D2] 50,000 unit PO Mo capsule 11/09/21 Unknown Rx Ferric Citrate (Nf) [Auryxia] 210 mg PO QDAY #30 tab-cap 11/09/21 Unknown Rx Furosemide [Lasix TAB] 40 mg PO BID #60 tab 11/09/21 Unknown Rx Gabapentin [Neurontin] 600 mg PO BID #60 tab 11/09/21 Unknown Rx Metoprolol [Lopressor TAB] 50 mg PO DAILY #30 tablet 11/09/21 Unknown Rx amLODIPine 10 mg PO DAILY #30 tablet 11/09/21 Unknown Rx lisinopriL [Zestril TAB] 40 mg PO QDAY #30 tablet 11/09/21 Unknown Rx oxyCODONE /ACETAMINOPHEN [Percocet 1 tab PO Q6H PRN tablet 11/09/21 Unknown Rx 5/325 mg] oxyCODONE /ACETAMINOPHEN [Percocet 1 tab PO Q6H PRN #10 tablet 11/09/21 Unknown Rx 5/325 mg] Acetaminophen [Non-Aspirin Extra 500 mg PO Q6HR PRN #30 tablet 01/31/22 Unknown Rx Strength] Metoclopramide [Reglan] 10 mg PO QID PRN #30 tablet 01/31/22 Unknown Rx ED Physical Exam - General Limitations: No Limitations General appearance: alert, in no apparent distress - Head Head exam: Present: atraumatic, normocephalic - Eye Eye exam: Present: normal appearance, EOMI. Absent: nystagmus - ENT ENT exam: Present: normal exam, normal orophraynx, mucous membranes moist, normal external ear exam - Neck Neck exam: Present: normal inspection, full ROM. Absent: tenderness, meningismus - Respiratory Respiratory exam: Present: normal lung sounds bilaterally. Absent: respiratory distress, wheezes, rales, rhonchi, stridor, decreased breath sounds - Cardiovascular Cardiovascular Exam: Present: regular rate, normal rhythm, normal heart sounds. Absent: bradycardia, tachycardia, irregular rhythm, systolic murmur, diastolic murmur, rubs, gallop - GI/Abdominal GI/Abdominal exam: Present: soft, normal bowel sounds. Absent: distended, tenderness, guarding, rebound, rigid - Rectal Rectal exam: Present: normal inspection, other (There is gluteal tenderness. There is minimal tailbone tenderness. There is no broken skin. Chaperoned by nurse Isabell Olivera) - Extremities Exam Extremities exam: Present: normal inspection (Left upper extremity fistula noted, with appropriate thrill, without redness, pus or streaking), full ROM, other (2+ pulses noted in the bilateral upper and lower extremities. There is no palpable cord. negative Homans sign. Muscular compartments are soft. The pelvis is stable.). Absent: calf tenderness - Back Exam Back exam: Present: normal inspection. Absent: tenderness, CVA tenderness (R), CVA tenderness (L), paraspinal tenderness, vertebral tenderness - Neurological Exam Neurological exam: Present: alert, oriented X3, other (No facial droop. Tongue midline. Extraocular movements intact bilaterally. Facial sensation intact to light touch in V1, V2, V3 distribution bilaterally. 5 and a 5 strength in 4 extremities. Sensation intact to light touch in 4 extremities.). Absent: motor sensory deficit - Psychiatric Psychiatric exam: Present: normal affect, normal mood - Skin Skin exam: Present: warm, dry, intact, normal color. Absent: rash ED Course Vital Signs 01/31/22 01/31/22 01/31/22 01:07 05:18 05:30 Temperature 95.5 F L Pulse Rate 66 203 H Respiratory 20 22 17 Rate Blood Pressure 135/53 Blood Pressure 120/73 [Right] O2 Sat by Pulse 99 96 96 Oximetry O2 Sat by Pulse Oximetry [ Digit-Finger] 01/31/22 01/31/22 01/31/22 05:39 05:46 06:00 Temperature 97.9 F Pulse Rate 66 67 65 Respiratory 16 17 15 Rate Blood Pressure 141/63 141/63 Blood Pressure 135/53 [Right] O2 Sat by Pulse 96 96 97 Oximetry O2 Sat by Pulse Oximetry [ Digit-Finger] 01/31/22 01/31/22 01/31/22 06:16 06:30 06:45 Temperature Pulse Rate 66 68 66 Respiratory 17 18 10 L Rate Blood Pressure 141/63 141/63 137/56 Blood Pressure [Right] O2 Sat by Pulse 97 98 99 Oximetry O2 Sat by Pulse Oximetry [ Digit-Finger] 01/31/22 01/31/22 01/31/22 07:00 08:00 08:36 Temperature Pulse Rate 68 66 Respiratory 29 H 14 Rate Blood Pressure 137/56 130/52 Blood Pressure [Right] O2 Sat by Pulse 98 98 Oximetry O2 Sat by Pulse 99 Oximetry [ Digit-Finger] 01/31/22 09:00 Temperature Pulse Rate 62 Respiratory 13 Rate Blood Pressure 126/42 Blood Pressure [Right] O2 Sat by Pulse 97 Oximetry O2 Sat by Pulse Oximetry [ Digit-Finger] - Reevaluation(s) Reevaluation #1: 01/31/22 07:30 Differential diagnosis, include but not limited to: Frequent falls, deconditioning, end-stage renal disease on hemodialysis, closed head injury, coccydynia Assessment and plan: 76-year-old female who presents after a fall while leaning over, while on her walker. She landed on her tailbone and hit her head. CT scan brain negative for acute findings. X-ray pelvis/tailbone negative for acute findings. Physical exam essentially unremarkable. Laboratory studies noncontributory. Discussed this extensively with patient and daughter at the bedside. As a courtesy, I will reach out to her charter coach driver, to see if patient can have a chair time for later on today or tomorrow. We will also obtain case management assistance to see if patient is eligible for home services. At this moment, she does not appear to have an emergent medical condition. Patient and family educated as to the natural history of closed head injury, and tailbone injury. Awaiting callback from nephrology, and case management Reevaluation #2: 01/31/22 07:33 Respiratory rate approximately 14 to 16/min. Respiratory rate of 29 documented in error 01/31/22 08:35 Patient seen and reexamined. She is sleeping comfortably, and she is in no acute distress. Discussed with social work my concerns. Social work will come by to evaluate the patient shortly. Have requested PT OT evaluation. Have also ordered this. Currently awaiting evaluation. Updated patient's daughter and patient. They articulated understanding. All questions answered 01/31/22 10:27 Final reassessment. Patient in no acute distress. PT Ot evaluation completed. Patient is requesting subacute rehab. Patient does not meet criteria for inpatient hospitalization or admission. Patient is declining home physical therapy and rehab because of bad experiences in the past. She is currently eating food and in no acute distress. She does not have an emergent medical condition present at this time. She may be discharged with outpatient follow-up. I will defer to primary care/nephrology, and case management to finalize patient's rehabilitation arrangements. - Consultations Consultation #1: 01/31/22 07:37 Discussed the patient's history, physical, laboratory studies and imaging studies with nephrology on-call Dr. Malhotra. Patient may continue current outpatient hemodialysis schedule, and present for her hemodialysis tomorrow bari zafar as scheduled - Pulse Oximetry Interpretation Digit-Finger Initial Pulse Oximetry Readin O2 Sat by Pulse Oximetry: 99 Actions Taken: none ED Medical Decision Making - Lab Data Result diagrams: 01/31/22 05:59 01/31/22 05:59 Vital Signs 01/31/22 01/31/22 01/31/22 01:07 05:18 05:30 Temperature 95.5 F L Pulse Rate 66 203 H Respiratory 20 22 17 Rate Blood Pressure 135/53 Blood Pressure 120/73 [Right] O2 Sat by Pulse 99 96 96 Oximetry 01/31/22 01/31/22 01/31/22 05:39 05:46 06:00 Temperature 97.9 F Pulse Rate 66 67 65 Respiratory 16 17 15 Rate Blood Pressure 141/63 141/63 Blood Pressure 135/53 [Right] O2 Sat by Pulse 96 96 97 Oximetry 01/31/22 01/31/22 01/31/22 06:16 06:30 06:45 Temperature Pulse Rate 66 68 66 Respiratory 17 18 10 L Rate Blood Pressure 141/63 141/63 137/56 Blood Pressure [Right] O2 Sat by Pulse 97 98 99 Oximetry 01/31/22 07:00 Temperature Pulse Rate 68 Respiratory 29 H Rate Blood Pressure 137/56 Blood Pressure [Right] O2 Sat by Pulse 98 Oximetry Lab Results 01/31/22 01/31/22 01/31/22 Range/Units 05:59 05:59 05:59 WBC 8.2 (4.5-11.0) K/mm3 RBC 3.41 L (3.65-5.03) M/mm3 Hgb 9.7 L (10.1-14.3) gm/dl Hct 30.8 (30.3-42.9) % MCV 90 (79-97) fl MCH 29 (28-32) pg MCHC 32 (30-34) % RDW 18.4 H (13.2-15.2) % Plt Count 150 (140-440) K/mm3 Lymph % (Auto) 20.7 (13.4-35.0) % Ponce % (Auto) 9.6 H (0.0-7.3) % Eos % (Auto) 2.1 (0.0-4.3) % Baso % (Auto) 0.5 (0.0-1.8) % Lymph # (Auto) 1.7 (1.2-5.4) K/mm3 Ponce # (Auto) 0.8 (0.0-0.8) K/mm3 Eos # (Auto) 0.2 (0.0-0.4) K/mm3 Baso # (Auto) 0.0 (0.0-0.1) K/mm3 Seg Neutrophils % 67.1 (40.0-70.0) % Seg Neutrophils # 5.5 (1.8-7.7) K/mm3 Sodium 142 (137-145) mmol/L Potassium 4.8 (3.6-5.0) mmol/L Chloride 98.1 (98-107) mmol/L Carbon Dioxide 28 (22-30) mmol/L Anion Gap 21 mmol/L BUN 78 H (7-17) mg/dL Creatinine 7.6 H (0.6-1.2) mg/dL Estimated GFR 6 ml/min BUN/Creatinine Ratio 10 % Glucose 213 H (65-100) mg/dL Calcium 9.8 (8.4-10.2) mg/dL Total Creatine Kinase (30-135) units/L TSH 0.378 (0.270-4.200) mlU/mL Free T4 1.00 (0.76-1.46) ng/dL 01/31/22 Range/Units 06:39 WBC (4.5-11.0) K/mm3 RBC (3.65-5.03) M/mm3 Hgb (10.1-14.3) gm/dl Hct (30.3-42.9) % MCV (79-97) fl MCH (28-32) pg MCHC (30-34) % RDW (13.2-15.2) % Plt Count (140-440) K/mm3 Lymph % (Auto) (13.4-35.0) % Ponce % (Auto) (0.0-7.3) % Eos % (Auto) (0.0-4.3) % Baso % (Auto) (0.0-1.8) % Lymph # (Auto) (1.2-5.4) K/mm3 Ponce # (Auto) (0.0-0.8) K/mm3 Eos # (Auto) (0.0-0.4) K/mm3 Baso # (Auto) (0.0-0.1) K/mm3 Seg Neutrophils % (40.0-70.0) % Seg Neutrophils # (1.8-7.7) K/mm3 Sodium (137-145) mmol/L Potassium (3.6-5.0) mmol/L Chloride (98-107) mmol/L Carbon Dioxide (22-30) mmol/L Anion Gap mmol/L BUN (7-17) mg/dL Creatinine (0.6-1.2) mg/dL Estimated GFR ml/min BUN/Creatinine Ratio % Glucose (65-100) mg/dL Calcium (8.4-10.2) mg/dL Total Creatine Kinase 200 H (30-135) units/L TSH (0.270-4.200) mlU/mL Free T4 (0.76-1.46) ng/dL - Radiology Data Radiology results: report reviewed, image reviewed CT HEAD WITHOUT CONTRAST INDICATION / CLINICAL INFORMATION: Head injury after fall. TECHNIQUE: All CT scans at this location are performed using CT dose reduction for ALARA by means of automated exposure control. COMPARISON: CT head without contrast from 08/04/2020. FINDINGS: BRAIN PARENCHYMA: No acute intracranial hemorrhage. No evidence of recent infarct. No mass effect or midline shift. Probable chronic microvascular ischemic changes are again seen along with generalized atrophy. VENTRICULAR SYSTEM/EXTRA-AXIAL SPACES: Ventricles are normal for age. No extra-axial fluid collection. ORBITS: Normal as visualized. SKELETAL SYSTEM/SOFT TISSUES: Normal bones and soft tissues. PARANASAL SINUSES/MASTOID AIR CELLS: No significant abnormality. ADDITIONAL FINDINGS: None. IMPRESSION: 1. No acute intracranial abnormality. No significant interval changes. Signer Name: Yoandy Faulkner MD Signed: 01/31/2022 1:03 AM Workstation Name: [id number] SACRUM/COCCYX 5 VIEWS INDICATION / CLINICAL INFORMATION: Pain along sacrum/coccyx after fall. COMPARISON: None available. FINDINGS: This study is limited by bowel overlying the sacrum and coccyx. BONES and JOINT(S): No acute fracture or subluxation. Mild degenerative changes are seen along the SI joints. SOFT TISSUES: No significant abnormality. ADDITIONAL FINDINGS: None. IMPRESSION: 1. No acute findings. Signer Name: Yoandy Faulkner MD Signed: 01/31/2022 1:07 AM Workstation Name: [id number] Critical care attestation.: If time is entered above; I have spent that time in minutes in the direct care of this critically ill patient, excluding procedure time. ED Disposition Clinical Impression: Fall, Advance care planning, End stage renal disease, Closed head injury, Case management patient, Coccydynia Disposition: 01 HOME / SELF CARE / HOMELESS Is pt being admited?: No Does the pt Need Aspirin: No Condition: Good Additional Instructions: Recommend that patient ambulate only with a walker. The patient should have an adult with her while at home. Pain typically gets worse before gets better after mechanical fall. May take the prescribed nausea and headache medicine as needed and directed, as well as pain medicine Please continue current outpatient medications and hemodialysis. Please follow- up with your outpatient primary care doctor or charter coach driver within the next week. Please return to the emergency room right away with new pain, worsened pain, migration of pain, projectile vomiting, change in mental status, confusion, inability tolerate liquid feeds, new, worsened or different symptoms not present on the initial emergency room evaluation Prescriptions: Acetaminophen [Non-Aspirin Extra Strength] 500 mg PO Q6HR PRN #30 tablet PRN Reason: Pain , Severe (7-10) Metoclopramide [Reglan] 10 mg PO QID PRN #30 tablet PRN Reason: Nausea Referrals: JUANA MALHOTRA MD [Staff Physician] - 3-5 Days
[2022-01-31 06:54] LABS: Basophils % (Auto) 0.5 % (0.0-1.8); Eosinophils # (Auto) 0.2 K/mm3 (0.0-0.4); Eosinophils % (Auto) 2.1 % (0.0-4.3); Hematocrit 30.8 % (30.3-42.9); Hemoglobin 9.7 gm/dl (10.1-14.3); Lymphocytes # (Auto) 1.7 K/mm3 (1.2-5.4); Lymphocytes % (Auto) 20.7 % (13.4-35.0); Mean Corpuscular HGB Conc 32 % (30-34); Mean Corpuscular Volume 90 fl (79-97); Monocytes # (Auto) 0.8 K/mm3 (0.0-0.8); Monocytes % (Auto) 9.6 % (0.0-7.3); Platelet Count 150 K/mm3 (140-440); Red Blood Count 3.41 M/mm3 (3.65-5.03); Red Cell Distribution Width 18.4 % (13.2-15.2)
[2022-01-31 07:04] LABS: Calcium 9.8 mg/dL (8.4-10.2)
[2022-01-31] MEDS ORDERED: FUROSEMIDE 40 MG TAB PO SCH (10:00)
[2022-01-31] MEDS ORDERED: ASPIRIN EC 81 MG TAB PO SCH (10:00)
[2022-01-31] MEDS ORDERED: GABAPENTIN 300 MG CAP PO SCH (10:00)
[2022-01-31] MEDS ORDERED: METOPROLOL TARTRATE 50 MG TAB PO SCH (10:00)
[2022-01-31] MEDS ORDERED: NON-FORMULARY EACH (Gabapentin [Neurontin] 600 MG Tablet) PO SCH (10:00)
[2022-01-31] MEDS ORDERED: amLODIPine 10 MG TAB PO SCH (10:00)
[2022-01-31 13:53] VITALS: BP 133/51
--- NOTE | 2022-02-02 18:09 | Electrocardiograph Report ---
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
== END 2022-01-31 13:53 | disposition home or self-care (01) ==
LOC: ED 01:00
DX: S09.90XA Unspecified injury of head, initial encounter (principal); I12.9 Hypertensive chronic kidney disease with stage 1 through stage 4 chronic kidney disease, or unspecified chronic kidney disease; E11.22 Type 2 diabetes mellitus with diabetic chronic kidney disease; W19.XXXA Unspecified fall, initial encounter; Y93.89 Activity, other specified; Y92.89 Other specified places as the place of occurrence of the external cause; Y99.8 Other external cause status; N18.6 End stage renal disease
CPT/HCPCS: 36415; 70450; 72220; 80048; 82550; 84439; 84443; 85025; 93005; 99284